=== PATIENT | female | born 1970 | race Two or more races ===

== ENCOUNTER → 2020-06-04 | Emergency (ER) | payer MEDICAID, OTHER ==
[~2020-06-04] VITALS: Ht 162.6 cm; Wt 88.0 kg
[2020-06-04 19:52] VITALS: BP 131/70
== END | disposition home or self-care (01) ==
LOC: ER 16:10
DX: S40.862A Insect bite (nonvenomous) of left upper arm, initial encounter (principal); E11.9 Type 2 diabetes mellitus without complications; W57.XXXA Bitten or stung by nonvenomous insect and other nonvenomous arthropods, initial encounter; Y93.89 Activity, other specified; Y92.89 Other specified places as the place of occurrence of the external cause; Y99.8 Other external cause status